=== PATIENT | male | born 1950 | race Caucasian/White ===

== ENCOUNTER 2024-12-01 05:24 | Day surgery (SDC) | payer MEDICARE ==
--- NOTE | 2024-11-26 14:06 | ELECTROCARDIOGRAPH REPORT ---
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 ONUR Bullard Measurements Intervals [place] Rate: 69 P: -43 IN: 212 QRS: -44 QRSD: 127 T: 48 QT: 405 QTc: 434 Interpretive Statements Sinus rhythm Right bundle branch block Electronically Signed On 11-26-2024 15:32:[address] ONUR Bullard Please click the below link to view image of tracing.
[2024-11-26 14:24] LABS: MEAN PLATELET VOLUME 6.8 FL (7.4-10.4); PRE OP HEMATOCRIT 33.1 % (42.0-52.0); PRE OP HEMOGLOBIN 11.2 g/dL (14.0-17.9); PRE OP PLATELET COUNT 229 X10'3 (140-440); PRE OP WHITE BLOOD COUNT 6.8 10'3 (4.8-10.8); RED CELL DISTRIBUTION WIDTH 15.7 % (11.5-14.5)
[2024-11-26 14:55] LABS: CREATININE 2.44 MG/DL (0.60-1.10); PRE OP ANION GAP 11 (8-16); PRE OP BILIRUB, TOTAL 0.3 MG/DL (0.0-1.0); PRE OP POTASSIUM 3.8 MMOL/L (3.4-5.1); PRE OP SODIUM 136 MMOL/L (135-145); TOTAL CARBON DIOXIDE 23.5 MMOL/L (24-32); eGFR 26 ML/MIN
[2024-11-26 14:56] LABS: PRE OP GLUCOSE 253 MG/DL (70-104)
[2024-11-26 14:57] LABS: PRE OP ALT 179 U/L (30-65); PRE OP AST 127 U/L (10-37)
[~2024-12-01] VITALS: Ht 177.8 cm; Wt 90.8 kg
[~2024-12-01 05:24] MED LIST: ASPI-920 PO; AZO CRANBERRY; ERGO400C PO; EZET10TA48 PO; FERR325T29 PO; GLYB5TAB7 PO; METO25TA6 PO; MULT-1085 PO; PANT40TA54 PO; PROBIOTIC PO; ROSU40TA89 PO
[2024-12-01] MEDS ORDERED: normal saline 1000ml 1,000 ML IV SCH (05:30)
[2024-12-01] MEDS ORDERED: DOCUMENT DATE & TIME OF BETA-BLOCKER PO ONE (05:30)
[2024-12-01 05:38] VITALS: BP 112/71; PULSE 67; RESP 16; TEMP 98.2; O2SAT 97
[2024-12-01] MEDS: ceFAZolin 2gm/dext,iso 50mL 50 ML IV ONE (06:16)
[2024-12-01] MEDS: ringers solution, lacted 1,000 ML IV SCH (06:22)
[2024-12-01] MEDS ORDERED: BUPIVAcaine 2.5mg/ml inj 50ml vial (contains preservative) ONE (06:37)
[2024-12-01] MEDS ORDERED: LIDOcaine 2% (20mg/ml) 5ml vial ONE (06:38)
[2024-12-01] MEDS ORDERED: fentaNYL/PF 50MCG/1 ML 2ML syringe ONE (07:31)
[2024-12-01] MEDS ORDERED: midazolam 1 mg/ML 2ml injection ONE (07:33)
[2024-12-01] MEDS ORDERED: LIDOcaine 0.5% (5mg/ml) 50ml vial ONE (08:00)
[2024-12-01] MEDS ORDERED: propofol inj 20 ML IV ONE (08:00)
[2024-12-01] MEDS: BUPIVAcaine/PF 2.5mg/ml (0.25%) 10ml vial IJ ONE (08:14)
[2024-12-01] MEDS: BUPIVAcaine 0.5% W/EPI /PF 30ml vial IJ ONE (08:14)
[2024-12-01] MEDS ORDERED: labetalol 20mg/4ml (5mg/ml) syringe IV PRN (08:15)
[2024-12-01] MEDS ORDERED: ringers solution, lacted 1,000 ML IV SCH (08:15)
[2024-12-01] MEDS ORDERED: acetaminophen 1,000mg/100ml IV 100 ML IV PRN (08:15)
[2024-12-01] MEDS ORDERED: HYDROmorphone/PF 0.2 MG/ML SYRINGE IV PRN ×2 (08:15)
[2024-12-01] MEDS ORDERED: hydrALAZINE 20mg/ml inj. IV PRN (08:15)
[2024-12-01] MEDS ORDERED: ondansetron/PF 4mg/2ml inj IV PRN (08:15)
[2024-12-01] MEDS ORDERED: morphine 4 MG/ML inj SYRINge IV PRN (08:15)
[2024-12-01 08:29] VITALS: BP 108/67; PULSE 62; RESP 16; O2SAT 97
[2024-12-01 08:40] VITALS: BP 126/68; PULSE 60; RESP 12; O2SAT 97
[2024-12-01 08:50] VITALS: BP 136/72; PULSE 59; RESP 10; O2SAT 99
[2024-12-01 09:00] VITALS: BP 132/69; PULSE 57; RESP 11; O2SAT 98
[2024-12-01 09:10] VITALS: BP 135/71; PULSE 59; RESP 16; O2SAT 97
--- NOTE | 2024-12-01 11:46 | OPERATIVE REPORT ---
Operative Report Providers to ~ Date of Procedure: Dec 01, 2024 Pre-Operative Diagnosis: Left hand Dupuytren's contracture Post-Operative Diagnosis Dupuytren's contracture left palm and middle finger, left ring finger, left small finger Procedure Performed Left palm and middle finger fasciectomy, additional fasciectomy left ring finger, additional fasciectomy left small finger Surgeon: Nick March MD Fermentation Engineer None Anesthesiologist: Jimi Muhammad Type of Anesthesia: Regional Findings: See dictation below Complications None Prosthetics\Implants used: None Estimated Blood Loss: None Specimen Removed: None Description of Procedure: The patient is a 74-year-old man with Dupuytren's contracture involving the middle ring and small fingers of his left hand with both palmar and finger contracture. Surgery is indicated to improve function. Risks and benefits were discussed with the patient. Some of the risks of this procedure include but are not limited to infection, bleeding, nerve or vessel damage, recurrence and stiffness. He agreed to proceed. The block and anesthesia was given in the operating room and time-out procedure was observed. Left arm was prepped and draped in usual manner. The 1st incision was made over the small finger where there was an abductor cord causing MCP and PIP contracture. Once the flaps were elevated careful dissection was done after identifying the digital neurovascular bundle both proximal and distal to the contracture. There was some involvement but we are able to tease the neurovascular bundle away from the diseased fascia which was then excised. This relieved the contracture of the small finger. The next incision was made from the palm out to the distal palm level and then extended both up toward the middle and toward the ring finger in a Y type incision. Starting with the middle finger the dissection was taken up distally to the distal segment the fascia was mostly on the ulnar side with a spiral cord enveloping the neurovascular bundle. The dissection was started from proximal to distal and nerves were identified and protected. The fascia was then completely excised off of the finger which relieved the contracture. The other limb of the Y incision was extended up the ring finger up to the DIPJ crease flaps were elevated and the nerves were protected while the fascia was excised. This relieved the contracture as well. Thorough irrigation was done along with a meticulous cauterization of any bleeders and the incisions were closed with a Prolene suture. Marcaine was injected a sterile dressing applied including a splint holding the middle ring and small fingers in near full extension. The tourniquet was released and the hand and fingers perfused well. The patient was taken to the recovery room in stable condition and tolerated the procedure well. NICK MARCH Jr., MD Dec 01, 2024 11:46
== END 2024-12-01 09:29 | disposition home or self-care (01) ==
LOC: PAS 05:24
PROVIDERS: ATTEND Orthopaedic Surgery Hand Surgery
DX: M72.0 Palmar fascial fibromatosis [Dupuytren] (principal); I45.10 Unspecified right bundle-branch block; I10 Essential (primary) hypertension; I25.118 Atherosclerotic heart disease of native coronary artery with other forms of angina pectoris; E11.9 Type 2 diabetes mellitus without complications; G47.30 Sleep apnea, unspecified; K21.9 Gastro-esophageal reflux disease without esophagitis; Z79.82 Long term (current) use of aspirin; Z79.891 Long term (current) use of opiate analgesic; Z79.899 Other long term (current) drug therapy; Z95.1 Presence of aortocoronary bypass graft; Z82.49 Family history of ischemic heart disease and other diseases of the circulatory system
CPT/HCPCS: 26123; 26125; 36415; 80053; 82948; 85025; 93005; A4215; A6449; J2003; J2250; J2704; J3010; J3490; J7030; J7120; Z7506; Z7508; Z7512; Z7610; S0020